=== PATIENT | male | born 1955 | race Two or more races ===

== ENCOUNTER → 2023-07-01 | Outpatient (CLI) | payer MEDICARE ==
[~2023-07-01] VITALS: Ht 167.6 cm; Wt 142.4 kg
[~2023-07-01] MED LIST: ADENOSINE 120 MG in GIVE UN-DILUTED 0 ML IV STA; IOHEXOL 350 MG/ML 100ML IJ ONE
== END | disposition home or self-care (01) ==
LOC: XYW 08:21
PROVIDERS: ATTEND Specialist
DX: I49.3 Ventricular premature depolarization (principal); I10 Essential (primary) hypertension; E11.9 Type 2 diabetes mellitus without complications; E78.5 Hyperlipidemia, unspecified
CPT/HCPCS: 78452; 93017; A9500; J0153; Q9967